=== PATIENT | female | born 1985 | race Caucasian/White ===

== ENCOUNTER → 2018-05-22 | Outpatient (CLI) | payer OTHER ==
[~2018-05-22] MED LIST: PRENTAB26 PO
== END | disposition home or self-care (01) ==
LOC: C.PAPS 14:08
PROVIDERS: ATTEND Obstetrics & Gynecology
DX: Z12.4 Encounter for screening for malignant neoplasm of cervix (principal)

== ENCOUNTER → 2018-05-27 | Outpatient (CLI) | payer OTHER | END | disposition home or self-care (01) | LOC: C.LABSPEC 17:15 | PROVIDERS: ATTEND Obstetrics & Gynecology | DX: Z30.430 Encounter for insertion of intrauterine contraceptive device (principal) ==

== ENCOUNTER 2020-06-03 12:08 | Inpatient (IN) ==
[2020-06-03] MEDS ORDERED: OXYTOCIN 30 UNITS/500 ML BAG IV PRN ×2 (12:23→14:30)
[2020-06-03] MEDS ORDERED: ePHEDrine sulfate 50 MG/ML AMP ONE (12:37)
[2020-06-03] MEDS ORDERED: BUPIVACAINE 0.25% 30 ML VIAL ONE (12:37)
[2020-06-03] MEDS ORDERED: fentaNYL 2MCG/ML ROPIV 1.25MG/ML 100 ML BAG EPI ONE (12:38)
[2020-06-03] MEDS ORDERED: fentaNYL citrate 100 MCG/2 ML VIAL ONE (12:38)
[2020-06-03] MEDS: LACTATED RINGER'S 1,000 ML IV PRN ×2 (12:42→13:44)
[2020-06-03 12:46] LABS: Hematocrit (blood only) 34.5 % (37-47); Hemoglobin 12.1 g/dL (12.0-16.0); Mean Corpuscular Hemoglobin 30.3 pg (25-34); Mean Corpuscular Hgb Conc 35.1 g/dL (32-36); Mean Corpuscular Volume 86.5 fL (80-100); Mean Platelet Volume 10.4 fL (7.4-10.4); Platelet Count 205 K/uL (130-400); RDW Coefficient of Variation 13.4 % (11.5-14.5); RDW Standard Deviation 42.6 fL (36.4-46.3); Red Blood Count 3.99 M/uL (4.2-5.4); White Blood Count 9.58 K/uL (4.8-10.8)
--- NOTE | 2020-06-03 13:12 | Anesthesiology Consultation ---
Date of Service June 03, 2020 Assessment & Plan (1) Encounter for pre-operative examination: Chart Review Chart Review: Acceptable Risk for Labor Epidural History Height/Weight Height: 5 ft 3 in Weight: 76.204 kg Allergies Allergy/AdvReac Type Severity Reaction Status Date / Time Penicillins Allergy Intermediate RASH Verified 06/03/20 12:35 Sulfa (Sulfonamide Allergy Intermediate RASH Verified 06/03/20 12:35 Antibiotics) Medications Home Medications Medication Instructions Recorded Confirmed Last Taken prenat.vits,sukhdeep,nnf-ajbh-zphah 1 tab PO DAILY 10/28/19 06/03/20 Unknown Active Medications Generic Name Dose Route Start Last Admin Trade Name Freq PRN Reason Stop Dose Admin Lactated Ringer's 1,000 mls @ 125 mls/hr 06/03/20 12:23 06/03/20 12:42 Lr IV 06/05/20 12:22 999 mls/hr .Q8H PRN Administration L&D Protocol Protocol NPO Last Intake of Fluids Comment: Sips Date Last Intake of Solids: 06/02/20 Past Medical History Medical History Encounter for anatomic survey Encounter for routine gynecological examination with Papanicolaou smear of cervix Oligomenorrhea Past Family History Family History Mother Hypertension Dyslipidemia Father Hypertension Grandmother (Maternal) Breast cancer Denies family history of Ovarian cancer Bleeding disorder Colorectal cancer Past Surgical History Surgical History [place] teeth extracted Social History Smoking Status: Never smoker Hx Alcohol Use: No Hx Substance Use: No substance use type: does not use Physical Exam Vital Signs Last Vital Signs Temp 36.8 C 06/03/20 12:16 Pulse 72 06/03/20 12:16 Resp 24 06/03/20 12:16 BP 159/93 H 06/03/20 12:16 Testing Laboratory Results 06/03/20 12:30
--- NOTE | 2020-06-03 13:30 | History & Physical Report ---
Date of Service June 03, 2020 Assessment & Plan (1) : Labs ordered upon admission including CBC. Pt's blood pressure elevated upon admission (110/56 and 113/50) but repeat blood pressures have been normal (124/75, 123/81, 124/95, 133/77). Urine dip on admission at 12:47pm negative for protein, ketones, and glucose. Will continue to monitor blood pressures. Pt with no complaints of headache, dizziness, or visual changes. Pt desires epidural for pain control. Anesthesiology consult placed. Will continue to monitor. Anticipate . Admission and Anticipated Discharge Date Admission Date: June 03, 2020 History of Present Illness Primary Care Provider: Maria M Fulton MD Kimber Torres is a 35 y/o female currently at 39 6/7 WGA with an KELSEY 06/04/2020 as determined by LMP who is here for . Her has been uncomplicated. Pt was seen in the office around 9:00am this morning by Dr. Martínez; pt states that she had cervical membrane sweeping at this morning's visit. Pt was d/c home with plans for IOL at 41 weeks if necessary. She presents this afternoon with the onset of contractions. Pt states that the contractions started around 10:30am after returning home from the office visit; they were q3- 3.5 min for about 1 hour and then increased to q2 minutes since then (~11:30am). She did have 2 episodes of vomiting at onset of contractions but she notes that she is not nauseous at this time. She has no other concerns at this time. + contractions; + movement; pt unsure if there has been fluid loss (states "felt kind of wet"); - bloody show but pt noted some blood tinged mucus 5 days ago (not persistent) Had regular appointments with OB. Blood type: B+ Antibody screen: neg Labs 11/04/19 Rubella:immune VDRL/RPR: nonreactive Gonorrhea: neg Chlamydia: neg HIV: neg HbSAg: neg GBS: negative 05/12/20 COVID-19 negative 05/19/20 repeat COVID-19 testing 06/03/20 negative Other screens: cff-DNA: negative, low-risk, male CF: declined SMA: declined Allergies Allergy/AdvReac Type Severity Reaction Status Date / Time Penicillins Allergy Intermediate RASH Verified 06/03/20 12:35 Sulfa (Sulfonamide Allergy Intermediate RASH Verified 06/03/20 12:35 Antibiotics) Home Medications Home Medications Medication Instructions Recorded Confirmed Type prenat.vits,sukhdeep,khu-rgao-kgyyh 1 tab PO DAILY 10/28/19 06/03/20 History Patient History Medical History Encounter for anatomic survey Encounter for routine gynecological examination with Papanicolaou smear of cervix Oligomenorrhea Surgical History [place] teeth extracted Family History Mother Hypertension Dyslipidemia Father Hypertension Grandmother (Maternal) Breast cancer Denies family history of Ovarian cancer Bleeding disorder Colorectal cancer Social History Smoking Status: Never smoker Hx Alcohol Use: No Hx Substance Use: No Beliefs That Will Affect Care: None marital status: marital status details: Pablo Torres (34) [phone] Current Living Situation: Family Current Living Situation Comment: lvies with spouse, son, 1 dog. current occupational status: employed current occupation: editorial assistant @ [employer] Other Information That Helps Us Care for You: No Feels Safe at Home: Yes Safety Concerns: Feels Safe At This Time Review of Systems Denies fever or chills. Denies shortness of breath or cough. Denies chest pain. Denies breast pain. + vomiting Denies dysuria or hematuria. + minimal pedal edema. Denies leg pain or leg swelling. Denies headache or changes in vision. Physical Exam Physical Exam: General: Alert, oriented. No acute distress. Cardiac: Regular rate and rhythm, no murmurs/rubs/gallops. Respiratory: Clear to auscultation bilaterally a/p, no wheezes/rales/rhonchi. No increased work of breathing. Symmetrical chest rise. No respiratory distress. Abdomen: Gravid. Vertex position. + heart tones. + palpable contractions. EFW 7-8# Pelvic: Dilation 6cm; Effacement 100%; Station -[address] Roque External FHT and external uterine monitors used; Category I tracing; moderate FHT variability. Lower Extremities: No lower extremity edema or swelling. No deep calf pain. Coni's negative bilaterally Results & Data ([facility]) Vital Signs (Past 12 Hours) Vital Signs Temp Pulse Resp BP Pulse Ox 06/03/20 13:17 76 100 06/03/20 12:16 36.8 C 72 24 159/93 H 06/03/20 12:13 72 159/93 H Laboratory Results Labs at admission today H.1 Hct: 34.5 WBC: 9.58 Plt: 205 Supervising Physician Co-Signing Physician Notes Resident Physician Supervision Note: I was present with Dr. Busby during the history and exam. I discussed the case with the resident and agree with the findings and plan as documented in the note. Any exceptions or clarifications are listed here: at 39 (+) wks GA, active labor. Initial BP's elevated, but stable, no PIH. Anticipate Documented By: Berny Roque Jr, MD, FACOG
[2020-06-03] MEDS ORDERED: fentaNYL 2MCG/ML ROPIV 1.25MG/ML 100 ML BAG EPI PRN (13:41)
[2020-06-03] MEDS ORDERED: NALOXONE HCL 0.4 MG/1 ML VIAL/CARP IV PRN (13:41)
[2020-06-03] MEDS ORDERED: NALOXONE HCL 1 MG in SODIUM CHLORIDE 0.9% 1000ML 1,000 ML IV PRN (13:41)
[2020-06-03] MEDS ORDERED: ePHEDrine sulfate 50 MG/ML AMP IV PRN (13:41)
[2020-06-03] MEDS ORDERED: DiphenhydrAMINE HCL 50 MG/ML VIAL IV PRN (13:41)
--- NOTE | 2020-06-03 14:29 | Obstetrical Progress Note ---
Date of Service June 03, 2020 Assessment & Plan (1) Encounter for supervision of normal in multigravida, antepartum: - tracing Cat II, moderate variability with accels - ctx's spaced after epidural - may need pitocin augmentation Admission and Anticipated Discharge Date Admission Date: June 03, 2020 Subjective comfortable after epidural Physical Exam Genitourinary: Cervix: 6/100/-1, AROM clear Results & Data ([facility]) Vital Signs (Past 12 Hours) Vital Signs Temp Pulse Resp BP Pulse Ox 06/03/20 14:22 68 98 06/03/20 14:21 70 115/70 06/03/20 14:17 73 99 06/03/20 14:16 70 20 130/84 06/03/20 14:12 72 99 06/03/20 14:11 74 134/79 06/03/20 14:07 81 99 06/03/20 14:06 75 133/77 06/03/20 14:02 92 H 99 06/03/20 14:00 79 124/95 06/03/20 13:57 75 98 06/03/20 13:56 76 123/81 06/03/20 13:52 79 124/75 98 06/03/20 13:47 78 99 06/03/20 13:45 79 113/59 L 06/03/20 13:44 75 110/56 L 06/03/20 13:42 76 97 06/03/20 13:41 77 117/80 06/03/20 13:39 71 117/78 06/03/20 13:37 72 123/82 99 06/03/20 13:35 68 119/82 06/03/20 13:32 67 100 06/03/20 13:27 70 100 06/03/20 13:22 80 100 06/03/20 13:17 76 100 06/03/20 12:16 98.2 F 72 24 159/93 H 06/03/20 12:13 72 159/93 H PG Care Time/CCT Total # of Minutes Spent Total Time Spent with Patient: Total time spent is greater than 50% in coordination of care (as documented) at patient's floor/unit and/or counseling patient: Coding Level of Care Code None Diagnoses Encounter for supervision of normal in multigravida, antepartum Z34.80
[2020-06-03] MEDS ORDERED: ACETAMINOPHEN 325 MG TAB PO PRN (15:19)
[2020-06-03] MEDS ORDERED: ACETAMINOPHEN W/CODEINE #3 1 TAB PO PRN (15:25)
[2020-06-03] MEDS ORDERED: HYDROCORTISONE ACETATE 25 MG SUPP PR PRN (15:25)
[2020-06-03] MEDS ORDERED: BENZOCAINE 20% AER SPR 82.5 GM CAN EXT PRN (15:25)
[2020-06-03] MEDS ORDERED: DIPHTHERIA/TETANUS/PERTUSSIS 0.5 ML SYR/VIAL IM ONE (15:25)
[2020-06-03] MEDS ORDERED: SUPERCREAM 0.870% 15 GM JAR EXT PRN (15:25)
--- NOTE | 2020-06-03 15:27 | Delivery Summary ---
Vaginal Delivery Summary Date of Service June 03, 2020 Vaginal Delivery Summary Findings: Viable male with Apgars of 8 and 9. Baby delivered over a intact perineum with a midline second-degree periclitoral laceration cord blood samples obtained. Placenta delivered spontaneously. Laceration repaired with 4-0 Vicryl. Estimated blood loss 300 cc. Labor course: Kimber Torres is a 35 y/o female currently at 39 6/7 WGA with an KELSEY 06/04/2020 as determined by LMP who is here for . Her has been uncomplicated. Pt was seen in the office around 9:00am this morning by Dr. Martínez; pt states that she had cervical membrane sweeping at this morning's visit. Pt was d/c home with plans for IOL at 41 weeks if necessary. She presents this afternoon with the onset of contractions. Pt states that the contractions started around 10:30am after returning home from the office visit; they were q3- 3.5 min for about 1 hour and then increased to q2 minutes since then (~11:30am). She did have 2 episodes of vomiting at onset of contractions but she notes that she is not nauseous at this time. She has no other concerns at this time. + contractions; + movement; pt unsure if there has been fluid loss (states "felt kind of wet"); - bloody show but pt noted some blood tinged mucus 5 days ago (not persistent) Had regular appointments with OB. Blood type: B+ Antibody screen: neg Labs 11/04/19 Rubella:immune VDRL/RPR: nonreactive Gonorrhea: neg Chlamydia: neg HIV: neg HbSAg: neg GBS: negative 05/12/20 COVID-19 negative 05/19/20 repeat COVID-19 testing 06/03/20 negative Other screens: cff-DNA: negative, low-risk, male CF: declined SMA: declined Upon admission the patient was deemed to be in active labor. She was uncomfortable anesthesia was consulted and an epidural was placed. After placement of the epidural the patient was 6 cm and had artificial rupture of membranes for clear fluid. Over the next hour patient progressed to full dilatation and began her second stage. Patient pushed for 5 minutes to deliver the viable male full infant. The cord was clamped and cut. Cord blood samples were obtained. Placenta was delivered spontaneously. Inspection of the perineum showed a midline second-degree periclitoral laceration. This was repaired with a running 4-0 Vicryl suture. Estimated blood loss 300 cc. Sponge and needle count was correct.
--- NOTE | 2020-06-03 17:17 | Anesthesia Procedure Note ---
Date of Service June 03, 2020 Anesthesia Post Epidural Note Vital Signs Vital Signs: Temp Pulse Resp BP Pulse Ox 36.8 C 70 20 129/86 98 06/03/20 12:16 06/03/20 17:11 06/03/20 14:16 06/03/20 17:11 06/03/20 15:12 Notes Mental Status: alert / awake / arousable and participated in evaluation Nausea / Vomiting: adequately controlled Pain: adequately controlled Airway Patency, RR, SpO2: stable & adequate BP & HR: stable & adequate Hydration State: stable & adequate Neuraxial Anesthesia: was administered and sensory block is resolving Anesthetic Complications: no major complications apparent Epidural: Removed without complications and With tip intact
[2020-06-03] MEDS: IBUPROFEN 600 MG TAB PO PRN (18:26)
[2020-06-03] MEDS: DOCUSATE SODIUM 100 MG CAP PO SCH (20:39)
[2020-06-04] MEDS: IBUPROFEN 600 MG TAB PO PRN ×4 (00:33→15:39)
--- NOTE | 2020-06-04 06:41 | Obstetrical Progress Note ---
Date of Service <Charito Busby - Last Filed: 06/04/20 07:25> June 04, 2020 Assessment & Plan <Charito Arline Busby DO - Last Filed: 06/04/20 07:25> (1) Normal course: - Feels well today. Eating well, voiding well, ambulating well. - Pain well controlled with ibuprofen 600mg Q4H PRN - Routine care -- OOB, ambulation, diet progression as tolerated - After discharge will have 6 week follow-up with Dr. Roque. Subjective <Charito Busby - Last Filed: 06/04/20 07:25> Kimber Torres is a 35 y/o female who is PPD #1 following with epidural at 39 6/7 weeks. She reports feeling well overall this morning. Minimal abdominal cramping and 2/10 pain well managed on analgesics. Voiding without difficulty. Tolerating meals overnight without difficulty. Patient has been able to ambulate some. + passing gas and - bowel movement. Has persistent lochia with some improvement this morning. Currently . Review of Systems Denies fever or chills. Denies shortness of breath or cough. Denies chest pain. Denies nausea/vomiting Denies breast pain. Denies dysuria. Denies leg pain or leg swelling. Denies headache or changes in vision. Physical Exam <Charito Busby DO - Last Filed: 06/04/20 07:25> General: Alert, oriented. No acute distress. Cardiac: Regular rate and rhythm. No murmurs. Respiratory: Clear to auscultation bilaterally a/p, no wheezes/rales/rhonchi. No increased work of breathing. Symmetrical chest rise. No respiratory distress. Abdomen: Soft, nontender, nondistended. Bowel sounds present. Uterus: Uterine fundus firm, 2 cm below umbilicus. Lower Extremities: No lower extremity edema or swelling. No deep calf pain. Coni's negative bilaterally. Results & Data ([facility]) <Charito Busby DO - Last Filed: 06/04/20 07:25> Vital Signs (Past 12 Hours) Vital Signs Temp Pulse Resp BP BP Pulse Ox 06/04/20 04:15 36.8 C 57 L 16 137/86 98 06/04/20 00:20 36.7 C 60 16 148/83 H 98 06/03/20 20:30 36.9 C 53 L 16 145/89 H 99 <Berny Roque Jr, MD, FACOG - Last Filed: 06/04/20 07:45> Co-Signing Physician Notes Resident Physician Supervision Note: I was present with Dr. Busby during the history and exam. I discussed the case with the resident and agree with the findings and plan as documented in the note. Any exceptions or clarifications are listed here: Pt desires d/c, instructions given. F/u in 6 weeks Documented By: Berny Roque Jr, MD, FACOG
[2020-06-04] MEDS: DOCUSATE SODIUM 100 MG CAP PO SCH (07:38)
[2020-06-04] MEDS ORDERED: PRENATAL VITAMIN 1 TAB PO SCH (08:00)
[2020-06-04] MEDS ORDERED: bisacodyL 5 MG TABEC PO SCH (20:00)
== END 2020-06-04 17:40 | disposition home or self-care (01) | DRG 807 ==
LOC: OPB 12:08 → 4S1 12:10 → 4S2 18:25